=== PATIENT | female | born 1995 | race African-American/Black ===

== ENCOUNTER 2017-08-11 12:18 | Emergency (ER) | payer SELFPAY ==
[2017-08-11 12:20] VITALS: BP 120/70; PULSE 87; RESP 18; TEMP 99.3; O2SAT 100
[2017-08-11] MEDS ORDERED: TRAM50TA PO (12:48)
[2017-08-11] MEDS ORDERED: CORTI10A LEFT EAR (12:48)
--- NOTE | 2017-08-11 12:51 | PD ---
HPI Chief Complaint: ENT Complaint Time Seen by Provider: 12:41 Travel History International Travel<30 days: No Contact w/Intl Traveler<30days: No Traveled to known affect area: No History of Present Illness HPI This patient complains of left ear pain. Duration is 3 days. Severity is moderate. Denies fever or injury. PFSH Social History Alcohol Use: No Tobacco Use: No Allergies-Medications (Allergen,Severity, Reaction): Coded Allergies: No Known Allergies (Unverified , 09/04/15) Reported Meds & Prescriptions Reported Meds & Active Scripts Active Cgnswnmv-Vhdwbizgu-[place] Otic Drops (Neomycin/Polymyxin/Hydrocortisone) 1 % Soln 4 Drop LEFT EAR QID 7 Days Tramadol (Tramadol HCl) 50 Mg Tab 50 Mg PO Q6H PRN Review of Systems General / Constitutional: No: Fever HENT: No: Headaches Cardiovascular: No: Chest Pain or Discomfort Respiratory: No: Cough Physical Exam Narrative Throat clear Psych: Normal mood and affect. Normal insight and judgment. NECK: Symmetrical appearance, midline trachea. No mass or crepitus. Thyroid without enlargement, tenderness, or mass. SKIN: Focused skin assessment reveals no rash or ulcers. Skin is warm and dry. Palpation shows no induration or nodules. Right canal and TM normal Left canal is erythematous and inflamed with normal TM Data Data Last Documented VS Vital Signs Date Time Temp Pulse Resp B/P (MAP) Pulse Ox O2 Delivery O2 Flow Rate FiO2 08/11/17 12:20 99.3 87 18 120/70 (87) 100 Room Air MDM Medical Decision Making Medical Screen Exam Complete: Yes Emergency Medical Condition: Yes Medical Record Reviewed: Yes Differential Diagnosis Otitis media, otitis externa, cellulitis Narrative Course I have reviewed the patient's electronic medical record. Presentation is consistent with a left otitis externa. Cortisporin prescribed and some tramadol for pain relief Diagnosis Primary Impression: Acute pain of left ear Additional Instructions: The patient was advised to follow up with their physician and return if they worsen. The patient was warned about potential sedation for the medications they will receive on prescription. Med/Other Pt SpecificInfo: Prescription(s) given Scripts Hipycjgd-Ihzqbpycv-IM Otic Drops (Pfrrjxhu-Nfnpowaib-KW Otic Drops) 1 % Soln 4 DROP LEFT EAR QID for Infection for 7 Days, #1 BOTTLE 0 Refills Prov: Kocisko,Brandon J. MD 08/11/17 Tramadol (Tramadol) 50 Mg Tab 50 MG PO Q6H Y for PAIN, #15 TAB 0 Refills Prov: Brandon Glover MD 08/11/17 Disposition: 01 DISCHARGE HOME Condition: Stable Brandon Glover MD Aug 11, 2017 12:51
== END 2017-08-11 13:35 | disposition home or self-care (01) ==
LOC: NEPD 12:18
DX: H92.02 Otalgia, left ear (principal)
CPT/HCPCS: 99283